=== PATIENT | male | born 1975 ===

== ENCOUNTER 2017-01-03 23:37 | Emergency (ER) | payer SELFPAY ==
[2017-01-03 23:37] VITALS: BMI 26.4
[2017-01-04 00:01] VITALS: RESP 20; TEMP 98; O2SAT 99
[2017-01-04] MEDS ORDERED: DiphenhydrAMINE 50 mg/ml Inj IM STA (00:10)
[2017-01-04] MEDS ORDERED: DiphenhydrAMINE 50 mg/ml Inj ONE (00:20)
--- NOTE | 2017-01-04 00:52 | C.PDOC ---
History Of Present Illness 41 year old male presents to the ED with complaints of intermittent episodes of urticaria for the last year. Patient states he came from [facility] two months ago, he began fluconazole pills and took one pill a week and has now run out and the rash reappeared. He does not know of any allergies and has not been tested to determine allergies. Patient denies shortness of breath, change in voice, or throat swelling. Chief Complaint (Nursing): Allergic Reaction History Per: Patient History/Exam Limitations: no limitations Onset/Duration Of Symptoms: Intermittent Episodes (for one year) Current Symptoms Are (Timing): Still Present Possible Cause: Unknown Associated Symptoms: Skin Rash. denies: Swelling, Trouble Swallowing, Dizziness , Chest Pain Recent travel outside of the [place]: Yes (travelled from [facility] to to months ago) Past Medical History Reviewed: Historical Data, Nursing Documentation, Vital Signs Vital Signs: Last Vital Signs Temp 98 F 01/03/17 23:57 Pulse 64 01/03/17 23:57 Resp 20 01/03/17 23:57 BP 144/88 01/03/17 23:57 Pulse Ox 99 01/04/17 01:40 Family History: States: Unknown Family Hx - Social History Hx Alcohol Use: No Hx Substance Use: No Review Of Systems Constitutional: Negative for: Fever, Chills, Sweats Cardiovascular: Negative for: Chest Pain, Palpitations Respiratory: Negative for: Cough, Shortness of Breath Gastrointestinal: Negative for: Nausea, Vomiting, Abdominal Pain, Diarrhea Skin: Positive for: Rash Physical Exam - Physical Exam Appears: Non-toxic, No Acute Distress Skin: Warm, Dry, Other (diffuse urticaria ) Head: Atraumatic Ear(s): Bilateral: Normal Oral Mucosa: Moist Tongue: Normal Appearing, No Swelling Lips: Normal Appearing, No Swelling Throat: Normal Neck: Normal ROM, Supple Chest: Symmetrical, No Deformity Cardiovascular: Rhythm Regular Respiratory: No Rales, No Rhonchi, No Stridor, No Wheezing Gastrointestinal/Abdominal: Soft, No Tenderness, No Distention, No Guarding, No Rebound Extremity: Normal ROM, No Tenderness Neurological/Psych: Oriented x3 ED Course And Treatment O2 Sat by Pulse Oximetry: 99 (room air ) Medical Decision Making Medical Decision Making: Patient was given prednisone, Benadryl, and Pepcid with improvement and instructed to follow up with clinic. Disposition - Disposition Referrals: [facility] [Outside] Disposition: HOME/ ROUTINE Disposition Time: 00:50 Condition: IMPROVED Additional Instructions: Follow up with PMD within 1-2 days. Return to ED if feel worse. Prescriptions: DiphenhydrAMINE [Benadryl] 25 mg PO .Q4-6 H #30 cap Famotidine [Pepcid] 20 mg PO BID #20 tab predniSONE [predniSONE Tab] 2 tab PO DAILY #8 tab Instructions: Urticaria (ED) Print Language: SINHALA - Clinical Impression Clinical Impression: Urticaria - Scribe Statement The provider has reviewed the documentation as recorded by the Scribe
[2017-01-04 01:44] VITALS: BP 134/78; PULSE 88
== END 2017-01-04 01:41 | disposition home or self-care (01) ==
LOC: C.ER 23:37
DX: L50.9 Urticaria, unspecified (principal)
CPT/HCPCS: 96372; 99284; J1200